=== PATIENT | female | born 1960 | race Caucasian/White ===

== ENCOUNTER 2019-05-25 06:54 | Day surgery (SDC) | payer BC ==
--- NOTE | 2019-05-24 12:38 | PCM.PREANE ---
Preanesthetic Assessment - Anesthesia/Transfusion/Family Hx Anesthesia History: Prior Anesthesia Without Reaction Family History of Anesthesia Reaction: No Transfusion History: No Prior Transfusion(s) Intubation History: Unknown - Review of Systems General: No Symptoms Pulmonary: No Symptoms (SALAS-does not use CPAP machine, 20 pk/hr smoking history Quit 15 yrs ago, History of pulmonary embolism) Cardiovascular: No Symptoms (History of HTN), Dyspnea on Exertion Gastrointestinal: No Symptoms (GERD-controlled) Neurological: No Symptoms Other: Reports: Easy Bleeding, Easy Bruising - Physical Assessment NPO Status Date: 05/24/19 NPO Status Time: 23:00 Vital Signs: HR: 77 BP: 119/78 Resp: 16 Temp: 97.9f Sat: 93% Height: 1.6 m Weight: 112.945 kg ASA Class: 3 Mental Status: Alert & Oriented x3 Airway Class: Mallampati = 3 Dentition: Reports: Normal Dentition, Caries Thyro-Mental Finger Breadths: 3 Mouth Opening Finger Breadths: 3 ROM/Head Extension: Full Lungs: Clear to Auscultation, Normal Respiratory Effort Cardiovascular: Regular Rate, Regular Rhythm, No Murmurs - Lab Values: All labs reviewed and noted and within acceptable ranges to proceed with scheduled procedure. - Imaging/EKG Impressions: EKG: SR rate=66 CXR: unremarkable, no significant changes from prior CXR. - Allergies Allergies/Adverse Reactions: Allergies Allergy/AdvReac Type Severity Reaction Status Date / Time Penicillins Allergy Hives, Verified 05/24/19 11:45 swelling - Anesthesia Plan Pre-Op Medication Ordered: None - Acknowledgements Anesthesia Type Planned: MAC Pt an Appropriate Candidate for the Planned Anesthesia: Yes Alternatives and Risks of Anesthesia Discussed w Pt/Guardian: Yes Pt/Guardian Understands and Agrees with Anesthesia Plan: Yes PreAnesthesia Questionnaire HEENT History: Reports: Impaired Vision Other HEENT History: wears glasses Cardiovascular History: Reports: Blood Clots/VTE/DVT, Hypertension, Other (See Below) Other Cardiovascular History: chest pain Respiratory History: Reports: Asthma, PE, Sleep Apnea Other Respiratory History: URI Gastrointestinal History: Reports: GERD Genitourinary History: Reports: Urinary Incontinence, Other (See Below) Other Genitourinary History: UTI in the past [employer] History: Reports: Other OB/BYN History: hysterectomy Musculoskeletal History: Reports: Arthritis, Fracture, Other (See Below) Other Musculoskeletal History: antalgic gait Neurological History: Reports: None Psychiatric History: Reports: Depression, Other (See Below) Other Psychiatric History: insomnia Endocrine/Metabolic History: Reports: Obesity/BMI 30+ Hematologic History: Reports: None Immunologic History: Reports: None Oncologic (Cancer) History: Reports: None Dermatologic History: Reports: Other (See Below) Other Dermatologic History: seborrheic keratosis, melasma - Infectious Disease History Infectious Disease History: Reports: Chicken Pox, Influenza, Shingles - Past Surgical History Head Surgeries/Procedures: Reports: None HEENT Surgical History: Reports: Other (See Below) Other HEENT Surgeries/Procedures: right eye surgery Cardiovascular Surgical History: Reports: Other (See Below) Other Cardiovascular Surgeries/Procedures: angiogram Respiratory Surgical History: Reports: None GI Surgical History: Reports: Appendectomy, Cholecystectomy, Colonoscopy, EGD, Vamsi Fundoplication, Other (See Below) Other GI Surgeries/Procedures: liposuction Female Surgical History: Reports: Hysterectomy, Tubal Ligation, Other (See Below) Other Female Surgeries/Procedures: uretheral surgery to help with incontinence, unsure of name of procedure. Neurological Surgical History: Reports: None Musculoskeletal Surgical History: Reports: Shoulder Surgery Other Musculoskeletal Surgeries/Procedures:: right foot surgery Oncologic Surgical History: Reports: None Dermatological Surgical History: Reports: None - SUBSTANCE USE Smoking Status *Q: Former Smoker Tobacco Use Within Last Twelve Months: No Second Hand Smoke Exposure: No Recreational Drug Use History: No Recreational Drug Type: Reports: Marijuana/Hashish - HOME MEDS Home Medications: Home Meds Naproxen Sodium [Aleve] 1 - 2 tab PO DAILY PRN 04/29/16 [History] Olmesartan/Hydrochlorothiazide [Benicar HCT 40-25 MG] 1 tab PO DAILY 04/29/16 [ History] diphenhydrAMINE [Benadryl] 25 mg PO BEDTIME PRN 05/24/19 [History] - CURRENT (IN HOUSE) MEDS Current Meds: Current Medications Lactated Ringer's (Ringers, Lactated) 1,000 mls @ 125 mls/hr IV ASDIRECTED STEPHANIE Lidocaine/Sodium Bicarbonate (Buffered Lidocaine 1% In Ns 8.4%) 0.25 ml IDERM ONETIME PRN PRN Reason: Prior to IV Start Sodium Chloride (Saline Flush) 10 ml FLUSH ASDIRECTED PRN PRN Reason: Keep Vein Open Discontinued Medications Lactated Ringer's (Ringers, Lactated) 1,000 mls @ 125 mls/hr IV ASDIRECTED STEPHANIE Stop: 04/27/17 23:00 Lidocaine/Sodium Bicarbonate (Buffered Lidocaine 1% In Ns 8.4%) 0.25 ml .XX ONETIME PRN PRN Reason: Prior to IV Start Stop: 04/27/17 18:00 Sodium Chloride (Saline Flush) 10 ml FLUSH ASDIRECTED PRN PRN Reason: Keep Vein Open Stop: 04/27/17 18:00
[~2019-05-25 06:54] MED LIST: Lactated Ringers 1,000 ML IV SCH; Lidocaine 1%/Sod Bicarbonate in NS 8.4% 1 ML Syringe IDERM PRN; Lidocaine 1%/Sod Bicarbonate in NS 8.4% 1 ML Syringe PRN; Sodium Chloride 0.9% 10 ML Syringe FLUSH PRN
[2019-05-25] MEDS ORDERED: Clindamycin Phosphate in D5W 900 MG in Premix Bag 1 BAG IV ONE ×2 (07:15)
[2019-05-25] MEDS ORDERED: Ondansetron 4 MG/2 ML SDV ONE (07:16)
[2019-05-25] MEDS ORDERED: Propofol 200 MG/20 ML SDV ONE ×4 (07:16→10:28)
[2019-05-25] MEDS ORDERED: Lidocaine 1% 6 ML ONE (07:16)
[2019-05-25] MEDS ORDERED: fentaNYL 100 MCG/2 ML SDV ONE (07:16)
[2019-05-25] MEDS ORDERED: Ketorolac 30 MG/ML SDV ONE (07:16)
[2019-05-25] MEDS ORDERED: Lidocaine 1% 30 ML SDV ONE (07:16)
[2019-05-25] MEDS ORDERED: Bupivacaine 0.5% 30 ML SDV ONE ×3 (07:17→10:44)
[2019-05-25] MEDS ORDERED: Midazolam 1 MG/ML 2 ML SDV ONE (07:17)
[2019-05-25] MEDS ORDERED: Ketamine 500 mg/10 ML MDV ONE (07:49)
[2019-05-25] MEDS ORDERED: HYDROmorphone 0.5 MG/0.5 ML Syringe ONE ×3 (08:40→10:03)
[2019-05-25] MEDS ORDERED: diphenhydrAMINE 50 MG/ML SDV IVPUSH PRN (08:43)
[2019-05-25] MEDS ORDERED: ePHEDrine 50 MG/ML SDV IVPUSH PRN (08:43)
[2019-05-25] MEDS ORDERED: fentaNYL 100 MCG/2 ML SDV IVPUSH PRN (08:43)
[2019-05-25] MEDS ORDERED: Ondansetron 4 MG/2 ML SDV IVPUSH PRN ×2 (08:43→12:35)
[2019-05-25] MEDS ORDERED: HYDROmorphone 0.5 MG/0.5 ML Syringe IVPUSH PRN (08:43)
[2019-05-25] MEDS ORDERED: Phenylephrine 1 MG in Sodium Chloride 0.9% 10 ML IV SCH (08:45)
[2019-05-25] MEDS ORDERED: Lactated Ringers 1,000 ML ONE ×2 (08:50→10:39)
--- NOTE | 2019-05-25 11:13 | PCM48HPAN ---
Post Anesthesia Note - EVALUATION WITHIN 48HRS OF ANESTHETIC Vital Signs in Normal Range: Yes Patient Participated in Evaluation: Yes Respiratory Function Stable: Yes Airway Patent: Yes Cardiovascular Function Stable: Yes Hydration Status Stable: Yes Pain Control Satisfactory: Yes Nausea and Vomiting Control Satisfactory: Yes Mental Status Recovered: Yes Vital Signs: Last Vital Signs Temp 98.8f 05/25/19 1105 Pulse 90 05/25/19 1105 Resp 11 05/25/19 1105 BP 93/48 05/25/19 1105 Pulse Ox 93 05/25/19 1105
--- NOTE | 2019-05-25 11:14 | PCM.OPNOTE ---
- General Post-Op/Procedure Note Date of Surgery/Procedure: 05/25/19 Operative Procedure(s): Removal of Retained Orthopedic Hardware, RIGHT foot Pre Op Diagnosis: Painful/Symptomatic Retained Orthopedic Hardware, RIGHT foot Post-Op Diagnosis: Same Anesthesia Technique: Local, MAC Primary Surgeon: Tony Wills II Complications: None Condition: Good Free Text/Narrative:: Patient left the OR for recovery with her vital signs stable & vascular status intact to digits 1-5 RIGHT foot.
[2019-05-25] MEDS ORDERED: Acetaminophen/oxyCODONE 325-5 MG Tab PO PRN (11:52)
--- NOTE | 2019-05-25 12:00 | CR ---
Right foot: Eight fluoroscopic spot views were obtained of the right foot. Study obtained utilizing C-arm device. Comparison: Previous right foot study of 05/01/16. Study shows removal of orthopedic hardware within the right foot and calcaneus. Final film shows screw remaining in place within the calcaneus. Fluoroscopy time given as 132.7 seconds. Impression: 1. Procedural study as noted above. Diagnostic code #2
[2019-05-25 13:53] VITALS: BP 101/75; PULSE 69
--- NOTE | 2019-05-25 15:34 | OR ---
DATE OF OPERATION: 05/25/2019 SURGEON: Tony Wills II, DPM ANESTHESIA: MAC with local block about the right foot. ANESTHESIA PROVIDER: Alondra Miguel CRNA. HEMOSTASIS: Right pneumatic ankle tourniquet at 250 mmHg pressure x90 minutes. PREOPERATIVE DIAGNOSIS: Painful symptomatic retained orthopedic hardware, right foot. POSTOPERATIVE DIAGNOSIS: Painful symptomatic retained orthopedic hardware, right foot. OPERATION PERFORMED: Removal of retained orthopedic hardware, right foot. DESCRIPTION OF PROCEDURE: Upon arrival and admission to the hospital, the patient examined and cleared for surgery by the anesthesia provider. IV access was obtained in the preoperative area, which patient was given 900 mg of clindamycin IV piggyback and prophylactic antibiotics and was then brought to the OR via gurney and transferred on the operating room table in a supine position. Patient was then given a combination of sedations and was adequately sedated before receiving 20 mL of 1:1 mixture 1% lidocaine plain and 0.5% Marcaine plain in the form of a local infiltrative block about the multiple hardware sites. The right lower extremity was wrapped with cotton Webril padding above the ankle for nonsterile pneumatic ankle tourniquet which was then draped with a sterile drape. The right lower extremity was then prepped and draped in usual aseptic manner. Right lower extremity was then elevated and exsanguinated with the use of an Esmarch bandage before inflating the right pneumatic ankle tourniquet to 250 mmHg pressure. Esmarch bandage was removed and attention was then directed to the dorsal medial aspect of the right 1st metatarsal cuneiform joint where screws for a Lapidus arthrodesis were removed. After which, an incision was created over the lateral calcaneocuboid joint where a plate and 4 screws were removed in addition to . An attempt was made to remove the 6.5 cannulated screw within the right calcaneus, but adequate and proper screwdriver sizes were not available at this time. Each wound was then copiously lavaged with sterile saline solution and was reapproximated utilizing 3-0 Vicryl at the deep level and then 4-0 nylon at the skin level. The patient received an additional 20 mL of 0.5% Marcaine plain. Dressings were then consisted of Betadine-soaked Adaptic gauze, 4 x 4 gauze, Kerlix, and an Colton bandage. Upon completion of the surgery, the right pneumatic ankle tourniquet was deflated and was noted to digits 1 through 5 of the right lower extremity became pink indicating normal vascular perfusion had returned. The patient appeared to tolerate the procedure and anesthesia well and left the OR for recovery with vital signs being stable and vascular status intact digits 1 through 5 of the right lower extremity with no apparent complications. In recovery, the patient received written and oral postop instructions with postoperative pain medication. The patient will ambulate partial weightbearing with an immobilization boot about her right foot from a previous surgery. Estimated blood loss was approximately 150 mL. There were no other apparent or obvious complications. ESTIMATED BLOOD LOSS: MMODAL /[id number]
== END 2019-05-25 13:30 | disposition home or self-care (01) ==
LOC: JD.SDS 06:54
PROVIDERS: ATTEND Podiatrist Foot & Ankle Surgery
DX: T84.84XA Pain due to internal orthopedic prosthetic devices, implants and grafts, initial encounter (principal); I10 Essential (primary) hypertension; E66.9 Obesity, unspecified; F32.9 Major depressive disorder, single episode, unspecified; G47.30 Sleep apnea, unspecified; Z88.0 Allergy status to penicillin; Z68.41 Body mass index [BMI] 40.0-44.9, adult; Z87.891 Personal history of nicotine dependence; Z79.899 Other long term (current) drug therapy
CPT/HCPCS: 20680; 76000; A9270; J1170; J1885; J2001; J2250; J2405; J2704; J3010; J3490; J7120; 01480

== ENCOUNTER 2019-12-26 18:07 | Emergency (ER) | payer BC ==
[2019-12-26 18:45] VITALS: BP 141/87; PULSE 78
--- NOTE | 2019-12-26 19:34 | EDM.PDOC ---
ED HPI GENERAL MEDICAL PROBLEM - General Chief Complaint: Neurological Problem Stated Complaint: dizzy Time Seen by Provider: 12/26/19 19:04 Source of Information: Reports: Patient, Family () History Limitations: Reports: No Limitations - History of Present Illness INITIAL COMMENTS - FREE TEXT/NARRATIVE: Mrs. Fierro is a very pleasant 59-year-old woman with a past medical history significant for a DVT/PE, untreated obstructive sleep apnea, untreated GERD, and untreated depression and anxiety, who now presents to the ED stating that she has had lightheadedness, worse when upright, on and off for more than a week , along with blurry vision, particularly in the evenings, for more than a week, and a headache, felt as a steady "pain" on and off for more than a week. She has also had bilateral ear fullness for the past few days, and the sensation of jaw tightness today. No recent fever, nausea, or vomiting. She reports urinary frequency for the past 3 days, but no dysuria. She has chronic diarrhea. No prior similar symptoms. The patient states that she took 1 Aleve a few days ago, 2 Tylenol this afternoon, and 2 aspirin around 17:00. She states that she was seen at the walk-in clinic, but that no tests were performed, and she was directed here. Here in the ED, the patient's initial BP is found to be slightly elevated at 141 /87, otherwise, she is hemodynamically stable, afebrile, saturating 98% on room air. Other than the aforementioned symptoms, the patient denies recent fever, chills , sore throat, ear pain, nasal or sinus congestion, cough, dyspnea, chest pain, palpitations, nausea, vomiting, constipation, diarrhea, abdominal pain, urinary symptoms, recent weight gain or weight loss, recent bloody bowel movements or black bowel movements, recent joint aches, headaches, or rashes. The patient's PCP is Dr. Choco Ahuja. Her Household Coordinator is Dr. Tony Wills. Headache Pain Score (Numeric/FACES): 4 - Related Data Allergies Allergy/AdvReac Type Severity Reaction Status Date / Time Penicillins Allergy Hives, Verified 12/26/19 18:45 swelling Home Meds: Home Meds Naproxen Sodium [Aleve] 1 - 2 tab PO DAILY PRN 04/29/16 [History] Olmesartan/Hydrochlorothiazide [Benicar HCT 40-25 MG] 1 tab PO DAILY 04/29/16 [ History] diphenhydrAMINE [Benadryl] 50 mg PO BEDTIME PRN 05/24/19 [History] Ascorbate Calcium [Vitamin C] 500 mg PO DAILY 12/26/19 [History] Ascorbic Acid/Collagen Hydr [Collagen Plus Vit C] 1 cap PO DAILY 12/26/19 [ History] Biotin 5 mg PO DAILY 12/26/19 [History] Cholecalciferol (Vitamin D3) [Vitamin D3] 2,000 units PO DAILY 12/26/19 [History ] Folic Acid 0.8 mg PO DAILY 12/26/19 [History] Magnesium 200 mg PO DAILY 12/26/19 [History] Past Medical History HEENT History: Reports: Impaired Vision (wears glasses) Cardiovascular History: Reports: Blood Clots/VTE/DVT, Hypertension Respiratory History: Reports: PE, Sleep Apnea (untreated) Gastrointestinal History: Reports: GERD (untreated) Genitourinary History: Reports: Urinary Incontinence (stress incontinence), Other (See Below) (Microscopic hematuria) Musculoskeletal History: Reports: Arthritis, Fracture (right humerus) Psychiatric History: Reports: Anxiety (untreated), Depression (untreated), Other (See Below) (Insomnia) Endocrine/Metabolic History: Reports: Obesity/BMI 30+ Dermatologic History: Reports: Seborrheic Dermatitis - Infectious Disease History Infectious Disease History: Reports: Chicken Pox, Influenza, Shingles - Past Surgical History HEENT Surgical History: Reports: Eye Surgery (right eye vitrectomy) Cardiovascular Surgical History: Reports: Other (See Below) (Coronary angiogram) GI Surgical History: Reports: Appendectomy, Cholecystectomy (2001 or 2003), Colonoscopy, EGD, Vamsi Fundoplication (+ 3 revisions) Female Surgical History: Reports: Hysterectomy, Tubal Ligation, Other (See Below) (Bladder suspension) Musculoskeletal Surgical History: Reports: Shoulder Surgery (left, arthroscopic) , Other (See Below) (Right foot reconstruction) Dermatological Surgical History: Reports: Other (See Below) (Liposuction) Social & Family History - Family History Family Medical History: Noncontributory - Tobacco Use Smoking Status *Q: Former Smoker Years of Tobacco use: 28 Packs/Tins Daily: 1 Month/Year Tobacco Last Used: Quit around 2008 - Caffeine Use Caffeine Use: Reports: Coffee Caffeine Use Comment: dinks 1 soda a day - Alcohol Use Alcohol Use History: Yes Alcohol Use Frequency: Rarely - Recreational Drug Use Recreational Drug Use: Yes Drug Use in Last 12 Months: Yes Recreational Drug Type: Reports: Marijuana/Hashish (CBD oil on occasion) - Living Situation & Occupation Living situation: Reports: , with Spouse, with Family (Daughter) Occupation: Unemployed ED ROS GENERAL - Review of Systems Review Of Systems: Comprehensive ROS is negative, except as noted in HPI. ED EXAM, GENERAL - Physical Exam Exam: See Below Exam Limited By: No Limitations General Appearance: Alert, WD/WN, No Apparent Distress Eye Exam: Bilateral Eye: EOMI, Normal Inspection, PERRL Ears: Normal External Exam, Normal Canal, Hearing Grossly Normal, Normal TMs Nose: Normal Inspection, Normal Mucosa, No Blood Throat/Mouth: Normal Inspection, Normal Lips, Normal Teeth, Normal Gums, Normal Oropharynx, Normal Voice, No Airway Compromise Head: Atraumatic, Normocephalic Neck: Normal Inspection, Supple, Non-Tender, Full Range of Motion. No: Lymphadenopathy (L), Lymphadenopathy (R) Respiratory/Chest: No Respiratory Distress, Lungs Clear, Normal Breath Sounds, No Accessory Muscle Use Cardiovascular: Normal Peripheral Pulses, Regular Rate, Rhythm, No Edema, No Gallop, No JVD, No Murmur, No Rub Peripheral Pulses: 3+: Radial (L), Radial (R) GI/Abdominal: Normal Bowel Sounds, Soft, Non-Tender, No Organomegaly, No Distention, No Abnormal Bruit, No Mass (Female) Exam: Deferred Rectal (Female) Exam: Deferred Back Exam: Normal Inspection, Full Range of Motion, NT Extremities: Normal Inspection, Normal Range of Motion, No Pedal Edema, Normal Capillary Refill Neurological: Alert, Oriented, CN II-XII Intact, Normal Cognition, No Motor/ Sensory Deficits Psychiatric: Normal Affect Skin Exam: Warm, Dry, Intact, Normal Color, No Rash EKG INTERPRETATION EKG Date: 12/26/19 Time: 19:36 Rhythm: Other (Sinus bradycardia) Rate (Beats/Min): 53 [place]: Normal P-Wave: Enlarged (LAE. 1st degree AVB.) QRS: Normal ST-T: Normal QT: Normal Comparison: Change From Previous EKG (Sinus bradycardia and first-degree AV block new since 05/02/2016) Course - Vital Signs Last Recorded V/S: Last Vital Signs Temp 36.1 C 12/26/19 18:42 Pulse 78 12/26/19 18:42 Resp 18 12/26/19 18:42 BP 141/87 H 12/26/19 18:42 Pulse Ox 98 12/26/19 18:42 Orthostatic Blood Pressure [ 153/77 Standing] Orthostatic Blood Pressure [ 159/62 Sitting] Orthostatic Blood Pressure [ 155/73 Supine] - Orders/Labs/Meds Orders: Active Orders 24 hr Category Date Time Status EKG Documentation Completion [RC] STAT Care 12/26/19 19:30 Active Orthostatic Vital Signs [RC] STAT Care 12/26/19 19:30 Active Labs: Laboratory Tests 12/26/19 12/26/19 12/26/19 Range/Units 19:40 19:40 19:40 WBC 7.73 (3.98-10.04) K/mm3 RBC 4.77 (3.98-5.22) M/mm3 Hgb 13.0 (11.2-15.7) gm/dl Hct 40.5 (34.1-44.9) % MCV 84.9 (79.4-94.8) fl MCH 27.3 (25.6-32.2) pg MCHC 32.1 L (32.2-35.5) g/dl RDW Std Deviation 42.0 (36.4-46.3) fL Plt Count 202 (182-369) K/mm3 MPV 9.1 L (9.4-12.3) fl Neutrophils % (Manual) 68 H (40-60) % Band Neutrophils % 0 (0-10) % Lymphocytes % (Manual) 24 (20-40) % Atypical Lymphs % 0 % Monocytes % (Manual) 7 (2-10) % Eosinophils % (Manual) 1 (0.7-5.8) % Basophils % (Manual) 0 L (0.1-1.2) Platelet Estimate Adequate RBC Morph Comment Normal PT 10.8 (9.7-12.0) SECONDS INR 0.99 APTT 26 (22-31) SECONDS D-Dimer, Quantitative 0.56 H (0.19-0.50) mg/L Sodium 143 (136-145) mEq/L Potassium 3.5 (3.5-5.1) mEq/L Chloride 104 (98-107) mEq/L Carbon Dioxide 31 (21-32) mEq/L Anion Gap 11.5 (5-15) BUN 18 (7-18) mg/dL Creatinine 1.1 H (0.55-1.02) mg/dL Est Cr Clr Drug Dosing 45.55 mL/min Estimated GFR (MDRD) 51 (>60) mL/min BUN/Creatinine Ratio 16.4 (14-18) Glucose 85 (74-106) mg/dL Calcium 9.4 (8.5-10.1) mg/dL Magnesium 1.9 (1.8-2.4) mg/dl Total Bilirubin 0.5 (0.2-1.0) mg/dL AST 18 (15-37) U/L ALT 27 (14-59) U/L Alkaline Phosphatase 87 (46-116) U/L Troponin I < 0.017 (0.00-0.056) ng/mL Total Protein 6.5 (6.4-8.2) g/dl Albumin 3.6 (3.4-5.0) g/dl Globulin 2.9 gm/dL Albumin/Globulin Ratio 1.2 (1-2) TSH 3rd Generation 2.571 (0.358-3.74) uIU/mL Urine Color (Yellow) Urine Appearance (Clear) Urine pH (5.0-8.0) Ur Specific [place] (1.005-1.030) Urine Protein (Negative) Urine Glucose (UA) (Negative) Urine Ketones (Negative) Urine Occult Blood (Negative) Urine Nitrite (Negative) Urine Bilirubin (Negative) Urine Urobilinogen (0.2-1.0) Ur Leukocyte Esterase (Negative) Urine RBC (0-5) /hpf Urine WBC (0-5) /hpf Ur Epithelial Cells (0-5) /hpf Urine Bacteria (FEW) /hpf Urine Mucus (FEW) /hpf 12/25/ Range/Units 20:12 WBC (3.98-10.04) K/mm3 RBC (3.98-5.22) M/mm3 Hgb (11.2-15.7) gm/dl Hct (34.1-44.9) % MCV (79.4-94.8) fl MCH (25.6-32.2) pg MCHC (32.2-35.5) g/dl RDW Std Deviation (36.4-46.3) fL Plt Count (182-369) K/mm3 MPV (9.4-12.3) fl Neutrophils % (Manual) (40-60) % Band Neutrophils % (0-10) % Lymphocytes % (Manual) (20-40) % Atypical Lymphs % % Monocytes % (Manual) (2-10) % Eosinophils % (Manual) (0.7-5.8) % Basophils % (Manual) (0.1-1.2) Platelet Estimate RBC Morph Comment PT (9.7-12.0) SECONDS INR APTT (22-31) SECONDS D-Dimer, Quantitative (0.19-0.50) mg/L Sodium (136-145) mEq/L Potassium (3.5-5.1) mEq/L Chloride (98-107) mEq/L Carbon Dioxide (21-32) mEq/L Anion Gap (5-15) BUN (7-18) mg/dL Creatinine (0.55-1.02) mg/dL Est Cr Clr Drug Dosing mL/min Estimated GFR (MDRD) (>60) mL/min BUN/Creatinine Ratio (14-18) Glucose (74-106) mg/dL Calcium (8.5-10.1) mg/dL Magnesium (1.8-2.4) mg/dl Total Bilirubin (0.2-1.0) mg/dL AST (15-37) U/L ALT (14-59) U/L Alkaline Phosphatase (46-116) U/L Troponin I (0.00-0.056) ng/mL Total Protein (6.4-8.2) g/dl Albumin (3.4-5.0) g/dl Globulin gm/dL Albumin/Globulin Ratio (1-2) TSH 3rd Generation (0.358-3.74) uIU/mL Urine Color Yellow (Yellow) Urine Appearance Clear (Clear) Urine pH 6.5 (5.0-8.0) Ur Specific [place] 1.015 (1.005-1.030) Urine Protein Negative (Negative) Urine Glucose (UA) Negative (Negative) Urine Ketones Negative (Negative) Urine Occult Blood Negative (Negative) Urine Nitrite Negative (Negative) Urine Bilirubin Negative (Negative) Urine Urobilinogen 0.2 (0.2-1.0) Ur Leukocyte Esterase Trace H (Negative) Urine RBC 75-100 H (0-5) /hpf Urine WBC 0-5 (0-5) /hpf Ur Epithelial Cells 0-5 (0-5) /hpf Urine Bacteria Few (FEW) /hpf Urine Mucus Rare (FEW) /hpf - Re-Assessments/Exams Free Text/Narrative Re-Assessment/Exam: 12/26/19 19:32 As above, the patient has been experiencing about 1 week of lightheadedness, particularly when upright, a headache, blurry vision, as well as fullness in both of her ears for the past few days and jaw tightness today. I have ordered a work-up that includes blood work, a urinalysis, orthostatics, and an ECG. Since her neurologic examination is completely normal, I do not see an indication for an emergency CT scan of the head at this time. 12/26/19 20:22 The patient is not orthostatic. 12/26/19 21:00 The patient's CBC is unremarkable. The patient's CMP is remarkable for a Cr lightly elevated at 1.1, but with a BUN normal at 18, and the remainder of her CMP being unremarkable. Her magnesium level is within normal limits at 1.9. Her TSH is within normal limits at 2.571. Her troponin is undetectably low. Her D-dimer is slightly elevated at 0.56. Her coags are within normal limits. Her urinalysis is remarkable for 3+ occult blood with 75-100 RBCs, leukocyte esterase negative with 0-5 WBCs, nitrate negative with few bacteria, and 0-5 squamous epithelial cells. 12/26/19 21:19 Test results discussed with the patient and her . As above, today's work -up is unremarkable, and does not explain the cause of her symptoms. While she was bradycardic on her ECG, had no time was she hypotensive. She stated that he always has some blood in her urine, although it is not clear if she is ever had that evaluated. I recommended to the patient that if her symptoms persist, that she follow-up with her PCP for further evaluation. Departure - Departure Time of Disposition: 21:20 Disposition: Home, Self-Care 01 Condition: Good Clinical Impression: Lightheaded, Headache, Ear fullness, Blurry vision - Discharge Information *PRESCRIPTION DRUG MONITORING PROGRAM REVIEWED*: Not Applicable *COPY OF PRESCRIPTION DRUG MONITORING REPORT IN PATIENT SHANDA: Not Applicable Referrals: Choco Ahuja Jr, MD [Primary Care Provider] - Tony Wills II DPM [Physician] - Forms: ED Department Discharge Additional Instructions: You were seen in the emergency room for about a week of lightheadedness, a headache, and blurry vision, along with the sensation of ear fullness for the past few days and jaw tightness today. Work-up in the ER included blood work, a urinalysis, positional blood pressure checks, and an ECG. Your work-up found blood in your urine, which you state is a chronic condition for you, but was otherwise unremarkable, and does not explain the cause of your symptoms. You have not suffered a heart attack. You do not have a blood clot in your lungs. You are not dehydrated. You are not anemic. There is no suggestion that you have diabetes. You are not hyper or hypothyroid. We recommend that you continue to take your currently prescribed medications, and follow-up with your PCP, Dr. Choco Ahuja, at the next available appointment , for further evaluation. If you have not previously had a work-up to see why you have blood in your urine , you can talk to Dr. Ahuja about a referral to a Biology Teacher. If any other problems, please do not hesitate to return to the ER. Sepsis Event Note - Evaluation Sepsis Screening Result: No Definite Risk - Focused Exam Vital Signs: Vital Signs Temp Pulse Resp BP Pulse Ox 12/26/19 18:42 36.1 C 78 18 141/87 H 98 Date Exam was Performed: 12/26/19 Time Exam was Performed: 21:13 - My Orders Last 24 Hours: My Active Orders 12/26/19 19:30 EKG Documentation Completion [RC] STAT Orthostatic Vital Signs [RC] STAT - Assessment/Plan Last 24 Hours: My Active Orders 12/26/19 19:30 EKG Documentation Completion [RC] STAT Orthostatic Vital Signs [RC] STAT
== END 2019-12-26 21:40 | disposition home or self-care (01) ==
LOC: JD.ED 18:07
DX: R42 Dizziness and giddiness (principal); R51 Headache; H53.8 Other visual disturbances; H93.90 Unspecified disorder of ear, unspecified ear; I10 Essential (primary) hypertension; E66.9 Obesity, unspecified; Z68.38 Body mass index [BMI] 38.0-38.9, adult; Z88.0 Allergy status to penicillin; Z79.899 Other long term (current) drug therapy; Z87.891 Personal history of nicotine dependence
CPT/HCPCS: 36415; 80053; 81001; 83735; 84443; 84484; 85007; 85027; 85379; 85610; 85730; 93005; 93010; 99284; 99284-25

== ENCOUNTER 2020-05-25 16:35 | Emergency (ER) | payer BC ==
[2020-05-25 16:49] VITALS: BP 142/89; PULSE 86
[2020-05-25] MEDS ORDERED: Sodium Chloride 0.9% 10 ML Syringe FLUSH PRN (16:57)
--- NOTE | 2020-05-25 18:15 | EDM.PDOC ---
ED HPI GENERAL MEDICAL PROBLEM - General Chief Complaint: General Stated Complaint: SOB/PAIN IN BOTH ARMS Time Seen by Provider: 05/25/20 16:43 Source of Information: Reports: Patient History Limitations: Reports: No Limitations - History of Present Illness INITIAL COMMENTS - FREE TEXT/NARRATIVE: The patient presents with chest pain, bilateral arm pain and shortness of breath. The past couple of night she had episodes like this. They last 15 minutes and she is not doing anything strenuous. She had a history of COVID 19 in March and since then she has not felt right. She has a history of PE in the past. She has no fever, chills, cough, congestion, runny nose, abdominal pain, nausea or vomiting. She has no history of problems with her heart. She is not sure if her heart is racing or if it is beating slow during these episodes. She feels lightheaded as well. She does not smoke. Onset: Sudden Duration: Day(s): Location: Reports: Chest, Upper Extremity, Left, Upper Extremity, Right Quality: Reports: Sharp Severity: Moderate Improves with: Reports: None Worsens with: Reports: None Associated Symptoms: Reports: Chest Pain, Shortness of Breath. Denies: Cough, Fever/Chills, Headaches, Nausea/Vomiting - Related Data Allergies Allergy/AdvReac Type Severity Reaction Status Date / Time Penicillins Allergy Severe Hives, Verified 05/25/20 16:49 swelling Home Meds: Home Meds Naproxen Sodium [Aleve] 1 - 2 tab PO DAILY PRN 04/29/16 [History] Olmesartan/Hydrochlorothiazide [Benicar HCT 40-25 MG] 1 tab PO DAILY 04/29/16 [History] diphenhydrAMINE [Benadryl] 50 mg PO BEDTIME PRN 05/24/19 [History] Ascorbate Calcium [Vitamin C] 500 mg PO DAILY 12/26/19 [History] Ascorbic Acid/Collagen Hydr [Collagen Plus Vit C] 1 cap PO DAILY 12/26/19 [History] Biotin 5 mg PO DAILY 12/26/19 [History] Cholecalciferol (Vitamin D3) [Vitamin D3] 2,000 units PO DAILY 12/26/19 [History] Folic Acid 0.8 mg PO DAILY 12/26/19 [History] Magnesium 200 mg PO DAILY 12/26/19 [History] Past Medical History HEENT History: Reports: Impaired Vision Other HEENT History: wears glasses Cardiovascular History: Reports: Blood Clots/VTE/DVT, Hypertension Other Cardiovascular History: chest pain Respiratory History: Reports: PE, Sleep Apnea Other Respiratory History: URI Gastrointestinal History: Reports: GERD Genitourinary History: Reports: Urinary Incontinence, Other (See Below) Other Genitourinary History: UTI in the past MAINTENANCE SUPERINTENDENT History: Reports: Other MAINTENANCE SUPERINTENDENT History: hysterectomy Musculoskeletal History: Reports: Arthritis, Fracture Other Musculoskeletal History: antalgic gait Neurological History: Reports: Headaches, Chronic Psychiatric History: Reports: Anxiety, Depression, Other (See Below) Other Psychiatric History: insomnia Endocrine/Metabolic History: Reports: Obesity/BMI 30+ Hematologic History: Reports: None Immunologic History: Reports: None Oncologic (Cancer) History: Reports: None Dermatologic History: Reports: Seborrheic Dermatitis Other Dermatologic History: seborrheic keratosis, melasma - Infectious Disease History Infectious Disease History: Reports: Chicken Pox, Influenza, Shingles - Past Surgical History Head Surgeries/Procedures: Reports: None HEENT Surgical History: Reports: Eye Surgery Cardiovascular Surgical History: Reports: Other (See Below) GI Surgical History: Reports: Appendectomy, Cholecystectomy, Colonoscopy, EGD, Vamsi Fundoplication Female Surgical History: Reports: Hysterectomy, Tubal Ligation, Other (See Below) Neurological Surgical History: Reports: None Musculoskeletal Surgical History: Reports: Shoulder Surgery, Other (See Below) Oncologic Surgical History: Reports: None Dermatological Surgical History: Reports: Other (See Below) Social & Family History - Family History Family Medical History: Noncontributory - Tobacco Use Tobacco Use Status *Q: Never Tobacco User Second Hand Smoke Exposure: No - Caffeine Use Caffeine Use: Reports: None Caffeine Use Comment: dinks 1 soda a day - Recreational Drug Use Recreational Drug Use: No - Living Situation & Occupation Living situation: Reports: , with Spouse, with Family (Daughter) Occupation: Unemployed ED ROS GENERAL - Review of Systems Review Of Systems: See Below Constitutional: Reports: No Symptoms HEENT: Reports: No Symptoms Respiratory: Reports: No Symptoms Cardiovascular: Reports: Chest Pain, Lightheadedness Endocrine: Reports: No Symptoms GI/Abdominal: Reports: No Symptoms : Reports: No Symptoms Musculoskeletal: Reports: Arm Pain Skin: Reports: No Symptoms ED EXAM, GENERAL - Physical Exam Exam: See Below Exam Limited By: No Limitations General Appearance: Alert, No Apparent Distress Ears: Normal External Exam Nose: Normal Inspection Head: Atraumatic, Normocephalic Neck: Normal Inspection Respiratory/Chest: No Respiratory Distress, Lungs Clear, Normal Breath Sounds Cardiovascular: Regular Rate, Rhythm, No Edema, No Murmur GI/Abdominal: Soft, Non-Tender, No Organomegaly, No Mass Back Exam: Normal Inspection Extremities: Normal Inspection #1 Interpretation EKG Date: 05/25/20 Time: 16:58 Rhythm: NSR Rate (Beats/Min): 81 [place]: Normal P-Wave: Present QRS: Normal ST-T: Normal QT: Normal Course - Vital Signs Last Recorded V/S: Last Vital Signs Temp 97.4 F 05/25/20 16:45 Pulse 86 05/25/20 16:45 Resp 18 05/25/20 16:45 BP 142/89 H 05/25/20 16:45 Pulse Ox 97 05/25/20 16:45 - Orders/Labs/Meds Orders: Active Orders 24 hr Category Date Time Status Cardiac Monitoring [RC] . DIRECTED Care 05/25/20 16:57 Active EKG Documentation Completion [RC] STAT Care 05/25/20 16:58 Active Holter Monitor 48 Hours [RC] .PRN Care 05/25/20 18:09 Ordered Peripheral IV Care [RC] . DIRECTED Care 05/25/20 16:58 Active Chest 1V Frontal [CR] Stat Exams 05/25/20 16:58 Taken Sodium Chloride 0.9% [Saline Flush] Med 05/25/20 16:57 Active 10 ml FLUSH ASDIRECTED PRN Peripheral IV Insertion Adult [OM.PC] Stat Oth 05/25/20 16:57 Ordered Medication Orders Sodium Chloride (Saline Flush) 10 ml FLUSH ASDIRECTED PRN PRN Reason: Keep Vein Open Last Admin: 05/25/20 17:17 Dose: 10 ml Documented by: ADRIANA Labs: Laboratory Tests 05/25/20 05/25/20 05/25/20 Range/Units 16:55 16:55 16:55 WBC 6.74 (3.98-10.04) K/mm3 RBC 5.12 (3.98-5.22) M/mm3 Hgb 13.7 (11.2-15.7) gm/dl Hct 43.2 (34.1-44.9) % MCV 84.4 (79.4-94.8) fl MCH 26.8 (25.6-32.2) pg MCHC 31.7 L (32.2-35.5) g/dl RDW Std Deviation 41.8 (36.4-46.3) fL Plt Count 224 (182-369) K/mm3 MPV 8.7 L (9.4-12.3) fl Neut % (Auto) 62.2 (34.0-71.1) % Lymph % (Auto) 25.8 (19.3-51.7) % [place] % (Auto) 8.8 (4.7-12.5) % Eos % (Auto) 2.8 (0.7-5.8) Baso % (Auto) 0.3 (0.1-1.2) % Neut # (Auto) 4.19 (1.56-6.13) K/mm3 Lymph # (Auto) 1.74 (1.18-3.74) K/mm3 [place] # (Auto) 0.59 H (0.24-0.36) K/mm3 Eos # (Auto) 0.19 (0.04-0.36) K/mm3 Baso # (Auto) 0.02 (0.01-0.08) K/mm3 D-Dimer, Quantitative 0.46 (0.19-0.50) mg/L Sodium 143 (136-145) mEq/L Potassium 3.3 L (3.5-5.1) mEq/L Chloride 103 (98-107) mEq/L Carbon Dioxide 31 (21-32) mEq/L Anion Gap 12.3 (5-15) BUN 18 (7-18) mg/dL Creatinine 1.1 H (0.55-1.02) mg/dL Est Cr Clr Drug Dosing 45.55 mL/min Estimated GFR (MDRD) 51 (>60) mL/min BUN/Creatinine Ratio 16.4 (14-18) Glucose 110 H (74-106) mg/dL Calcium 9.1 (8.5-10.1) mg/dL Total Bilirubin 0.3 (0.2-1.0) mg/dL AST 20 (15-37) U/L ALT 26 (14-59) U/L Alkaline Phosphatase 104 (46-116) U/L Troponin I < 0.017 (0.00-0.056) ng/mL Total Protein 6.9 (6.4-8.2) g/dl Albumin 3.7 (3.4-5.0) g/dl Globulin 3.2 gm/dL Albumin/Globulin Ratio 1.2 (1-2) Meds: Medications Generic Name Dose Route Start Last Admin Trade Name Freq PRN Reason Stop Dose Admin Sodium Chloride 10 ml 05/25/20 16:57 05/25/20 17:17 Saline Flush FLUSH 10 ml ASDIRECTED PRN Administration Keep Vein Open - Re-Assessments/Exams Free Text/Narrative Re-Assessment/Exam: 05/25/20 18:14 I ordered an EKG, CXR, and labs. Her EKG shows a NSR with no acute changes. Her CXR looks good. Her CBC and CMP look good. Her troponin is negative along with her D-dimer. I will have her wear a holter monitor for a couple of days and see what her heart rate is doing. Departure - Departure Time of Disposition: 18:20 Disposition: Home, Self-Care 01 Condition: Good Clinical Impression: Atypical chest pain, Lightheadedness, Bilateral arm pain - Discharge Information *PRESCRIPTION DRUG MONITORING PROGRAM REVIEWED*: Not Applicable *COPY OF PRESCRIPTION DRUG MONITORING REPORT IN PATIENT SHANDA: Not Applicable Referrals: Choco Ahuja Jr, MD [Primary Care Provider] - 1 Week Additional Instructions: Wear the holter monitor for 48 hours. Keep track of what you are doing and what is going on during these events. Call 911 if you need help. They can also hook you up to their monitor and see what is going on with your heart. Please return if you are worse. Sepsis Event Note (ED) - Evaluation Sepsis Screening Result: No Definite Risk - Focused Exam Vital Signs: Vital Signs Temp Pulse Resp BP Pulse Ox 05/25/20 16:45 97.4 F 86 18 142/89 H 97 - My Orders Last 24 Hours: My Active Orders 05/25/20 16:57 Cardiac Monitoring [RC] . DIRECTED Sodium Chloride 0.9% [Saline Flush] 10 ml FLUSH ASDIRECTED PRN Peripheral IV Insertion Adult [OM.PC] Stat 05/25/20 16:58 EKG Documentation Completion [RC] STAT Peripheral IV Care [RC] . DIRECTED Chest 1V Frontal [CR] Stat 05/25/20 18:09 Holter Monitor 48 Hours [RC] .PRN - Assessment/Plan Last 24 Hours: My Active Orders 05/25/20 16:57 Cardiac Monitoring [RC] . DIRECTED Sodium Chloride 0.9% [Saline Flush] 10 ml FLUSH ASDIRECTED PRN Peripheral IV Insertion Adult [OM.PC] Stat 05/25/20 16:58 EKG Documentation Completion [RC] STAT Peripheral IV Care [RC] . DIRECTED Chest 1V Frontal [CR] Stat 05/25/20 18:09 Holter Monitor 48 Hours [RC] .PRN
--- NOTE | 2020-05-26 10:18 | CR ---
PROCEDURE INFORMATION: Exam: XR Chest, 1 View Exam date and time: 05/25/2020 5:10 PM Age: 59 years old Clinical indication: Chest pain; Type not specified TECHNIQUE: Imaging protocol: XR of the chest Views: 1 view. COMPARISON: CR Chest 1V Frontal 05/02/2016 9:10 PM FINDINGS: Lungs: Unremarkable. No consolidation. Pleural space: Unremarkable. No pleural effusion. No pneumothorax. Heart/Mediastinum: Unremarkable. No cardiomegaly. Bones/joints: Unremarkable. IMPRESSION: No acute findings. Thank you for allowing us to participate in the care of your patient. Dictated and Authenticated by: Israel Cervantes MD 05/25/2020 6:57 PM Central Time ([place] & [place]) [facility]
== END 2020-05-25 18:45 | disposition home or self-care (01) ==
LOC: JD.ED 16:35
DX: R07.89 Other chest pain (principal); R42 Dizziness and giddiness; M79.602 Pain in left arm; M79.601 Pain in right arm; I10 Essential (primary) hypertension; E66.9 Obesity, unspecified; Z68.38 Body mass index [BMI] 38.0-38.9, adult; Z79.899 Other long term (current) drug therapy; Z88.0 Allergy status to penicillin
CPT/HCPCS: 36415; 71045; 71045-26; 80053; 84484; 85025; 85379; 93005; 93225; 93226; 99285-25